=== PATIENT | male | born 1975 | race African-American/Black ===

== ENCOUNTER 2018-02-03 12:04 | Emergency (ER) | payer MEDICAID ==
[~2018-02-03] VITALS: Ht 172.7 cm; Wt 91.0 kg
[2018-02-03] MEDS ORDERED: LISI2.5T47 PO (12:47)
[2018-02-03] MEDS ORDERED: ATOR10TA69 PO (12:47)
[2018-02-03] MEDS ORDERED: PREDNISONE 20MG TABLET PO STA (13:16)
[2018-02-03] MEDS ORDERED: FAMOTIDINE 20MG TABLET PO ONE (13:30)
[2018-02-03] MEDS ORDERED: DIPHENHYDRAMINE 25MG CAPSULE PO ONE (13:30)
[2018-02-03 14:13] VITALS: BP 124/72
== END 2018-02-03 14:20 | disposition home or self-care (01) ==
LOC: ER 12:04
DX: T78.40XA Allergy, unspecified, initial encounter (principal); E11.9 Type 2 diabetes mellitus without complications; E78.00 Pure hypercholesterolemia, unspecified; I10 Essential (primary) hypertension; X58.XXXA Exposure to other specified factors, initial encounter; Z88.6 Allergy status to analgesic agent
CPT/HCPCS: 99283; J7512

== ENCOUNTER 2018-04-11 08:51 | Emergency (ER) | payer MEDICAID ==
[~2018-04-11] VITALS: Ht 172.7 cm; Wt 91.0 kg
[~2018-04-11 08:51] MED LIST: ATOR10TA69 PO; LISI2.5T47 PO
[2018-04-11 11:00] VITALS: BP 148/86
== END 2018-04-11 11:24 | disposition home or self-care (01) ==
LOC: ER 08:59
DX: H61.23 Impacted cerumen, bilateral (principal); E11.9 Type 2 diabetes mellitus without complications; Z88.6 Allergy status to analgesic agent; Z91.013 Allergy to seafood
CPT/HCPCS: 69209; 69210; 99283